=== PATIENT | female | born 1975 | race Caucasian/White ===

== ENCOUNTER → 2025-01-30 10:14 | Outpatient (REF) | payer BC, SELFPAY | LOC: WDC 10:14 | PROVIDERS: ATTENDING PHYSICIAN Radiology Radiation Oncology | DX: N63.20 Unspecified lump in the left breast, unspecified quadrant (principal); N63.21 Unspecified lump in the left breast, upper outer quadrant | CPT/HCPCS: 76642; 77062; 77066 ==

== ENCOUNTER → 2025-02-09 09:57 | Outpatient (REF) | payer BC, SELFPAY | LOC: CLAB 09:57 | PROVIDERS: ATTENDING PHYSICIAN Physician Assistant Medical | DX: L82.1 Other seborrheic keratosis (principal) | CPT/HCPCS: 88305 ==